=== PATIENT | male | born 1990 | race Caucasian/White ===

== ENCOUNTER 2023-09-15 10:40 | Emergency (ER) | payer OTHER, SELFPAY ==
[2023-09-15 10:45] VITALS: BP 135/92; PULSE 72; RESP 14; TEMP 36.9; O2SAT 100; BMI 28.9
--- NOTE | 2023-09-15 11:01 | ED_ITS ---
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 He has small cut in that area and subsequent developed some white area lateral to the nail bed proximally and some redness around the base of the nail. No other injuries reported. We discussed this he is up-to-date on tetanus. Related Data Home Medications Medication Instructions Recorded Confirmed No Known Home Medications 09/15/23 09/15/23 Allergies Allergy/AdvReac Type Severity Reaction Status Date / Time No Known Drug Allergies Allergy Verified 09/15/23 10:49 Review of Systems Narrative: No history of prior infections or difficulty healing infections PFSH PFSH Social History Smoking Status: Never smoker Do you use any of these nicotine containing products: None How often do you have a drink containing alcohol: never How often do you have six or more drinks on one occasion: Never AUDIT-C Alcohol total score: 0 Non-prescribed substance use: denies use Exam Narrative: Exam Narrative: Objective: The patient has a perineal infection of the long finger of the right hand on the lateral aspect of his nail he has some whitish material that with a sterile scrub and then 25 gauge needle was open in good drainage of pus noted. A couple other small punctures were made in the purulent area. Able to express good amount of pus. Const: Vital Signs, click to edit/add: Vital Signs - 24 hr 09/15/23 10:45 Temperature 98.4 F Pulse Rate [Pulse Oximeter] 72 Respiratory Rate 14 Blood Pressure [Le ft Upper Arm] 135/92 H Pulse Oximetry 100 Oxygen Delivery Me thod Room Air Course Vital Signs Vital signs: Initial Vital Signs Temperature 98.4 F 09/15/23 10:45 Temperature Source Temporal Artery Scan 09/15/23 10:45 Pulse Rate 72 09/15/23 10:45 Respiratory Rate 14 09/15/23 10:45 Blood Pressure 135/92 H 09/15/23 10:45 Blood Pressure Mean 106 H 09/15/23 10:45 Blood Pressure Position Sitting 09/15/23 10:45 Pulse Oximetry 100 11/05/23 10:45 Oxygen Delivery Method Room Air 09/15/23 10:45 Vital Signs Temperature 98.4 F 09/15/23 10:45 Pulse Rate 72 09/15/23 10:45 Respiratory Rate 14 09/15/23 10:45 Blood Pressure 135/92 H 09/15/23 10:45 Pulse Oximetry 100 09/15/23 10:45 Oxygen Delivery Method Room Air 09/15/23 10:45 Temperature 98.4 F 09/15/23 10:45 Pulse Rate 72 09/15/23 10:45 Respiratory Rate 14 09/15/23 10:45 Blood Pressure 135/92 H 09/15/23 10:45 Pulse Oximetry 100 09/15/23 10:45 Oxygen Delivery Method Room Air 09/15/23 10:45 Medical Decision Making MDM Narrative Medical decision making narrative: [age] year white male with paronychia infection. Opened the purulent area around the base of the nail. Would recommend antibiotics for the next several days will give him Augmentin 875 b.i.d. x7 days, warm soaks, keep covered for the next several days, light use of the hand of possible. Recheck if needed or not improving the next several days. At this point he denies any foreign body or foreign body sensation. But would x-ray if he does not get better. Discharge Plan Discharge Clinical Impression: Paronychia Patient Disposition: Home, Self-Care Condition: Improved Additional Instructions: Keep covered with a bandage or global at work for the next several days, so consult soapy water 3 to 4 times a day. Antibiotic as prescribed. Recheck if not improving in the next several days. Medications available in [facility] Activity Level: Light activity Discharge Diet: Regular Prescriptions: No Action No Known Home Medications Stand Alone Forms: [facility] Info Instructions
== END 2023-09-15 11:11 | disposition home or self-care (01) ==
LOC: ED 11:11
PROVIDERS: Emergency Provider Family Medicine
DX: L03.011 Cellulitis of right finger (principal)
CPT/HCPCS: 10060; 99283